=== PATIENT | male | born 1970 | race Caucasian/White ===

== ENCOUNTER 2018-12-10 06:59 | Day surgery (SDC) | payer BC, SELFPAY ==
[2018-12-07 13:24] VITALS: BMI 25.0
[2018-12-10] VITALS (7 sets, daily range): BP systolic 102–129; BP diastolic 47–77; PULSE 65–95; RESP 18; TEMP 36.3–36.5; O2SAT 97–100
--- NOTE | 2018-12-10 07:51 | P.PN_ITS ---
[facility] Anesthesia Checklist - Patient Identification Patient Identification: Arm Band - Structural Data Admitted From: Home Planned Operative Procedure/s: colonoscopy Consent for Planned Operative Procedure(s) Verified: Yes Verified Documents: Surgical Consent, History and Physical - NPO Status Verified Time NPO: 00:00 - Additional verifications Anesthesia Reactions: No - Airway Assessment C-Spine Mobility Assessed: Yes (mp2) TMJ Mobility Assessed: Yes Dentition: Good Dentition - Neurological Assessment Level of Consciousness: Awake, Alert - Anesthesia Plan Anesthesia Risk discussed: Yes Anesthesia Plan: Verified ASA Class: II Anesthesia Type: MAC [facility] History I have reviewed the patient's past medical history: Yes Medical History: Reports:: Hypertension Denies:: Diabetes Mellitus Type 1, Diabetes Mellitus Type 2, Internal Pacemaker, Lung Disease, Seizures *Have you ever received a pneumonia vaccine?: No *Have you received a flu vaccine this season?: Yes Other Medical History: Reports: Other (crohns) Laterality Cases: Right: Arthroscopy Knee Other Surgeries: Yes: Other (right femur orif). No: Pacemaker - *Social History *Occupational Status:: other *Travel in the last 8 weeks: None Family Hx:: Unable to obtain
--- NOTE | 2018-12-10 08:30 | P.PCN_ITS ---
[facility] Procedure Note Procedure Note:: Colonoscopy Procedure Report: Colonoscopy with cold snare polypectomy Endoscopist: Lorenzo Thorpe II, MD Referring physician: Norman Cook MD Date of Procedure: December 10, 2018 Equipment: Olympus 180 variable stiffness pediatric colonoscope Sedation: MAC sedation Indication: Mr. Hobbs is a 48-year-old gentleman who is here for screening colonoscopy. He does have a long history of Crohn's colitis and positive anti- Cbir. He had been on Remicade and Imuran but now is on Imuran 150 mg p.o. daily. He has been on this for approximately 9 years. He had a colonoscopy in October 2015 showing complete colonoscopic remission. He does have some occasional constipation and occasional left upper abdominal pain/discomfort. He does take fiber plus. He occasionally sees some blood on the tissue but not in the bowl. He has no mucus. He reports no weight loss or family history of colon cancer. His colonoscopy in October 2015 revealed 2 colon polyps (small serrated adenomas) which were removed. Procedure: Prior to the procedure, a history and physical exam was performed, and patient's medications and allergies were reviewed. The risks, benefits and alternatives of the sedation and procedure were discussed with the patient. All questions were answered and informed consent was obtained. The patient was brought to the procedure room. Patient identification and proposed procedure were verified by the physician and the nurse. The patient was placed in a left lateral decubitus position and the scope was passed under direct vision. Throughout the procedure, the patient's blood pressure, pulse, and oxygen saturations were monitored continuously. The colonoscopy was accomplished without difficulty. The patient tolerated the procedure well. Findings: On digital rectal examination there was normal rectal tone. There were no external hemorrhoids. The colonoscope was introduced through the anal canal to the rectum and advanced to the cecum. The ileocecal valve and appendiceal orifice were identified. The scope was advanced a short distance into the ileum which appeared grossly normal. The scope was then withdrawn into the colon. The cecum, ascending, transverse and descending colon were grossly normal. There were 2 polyps that were 5 mm in the sigmoid colon both removed via cold snare polypectomy. There were no mucosal abnormalities identified. There was some colonic mucosal fibrosis in the left colon from healed colitis but there was complete remission of the colitis. Upon retroflexion within the rectum there were grade 1 internal hemorrhoids.The preparation was excellent throughout with [place] Preparation Score of 9. The cecal time was 13 minutes. Impression: 1. Diminutive colonic polyps x2?rule out hyperplastic versus inflammatory polyps 2. Complete colonoscopic remission of Crohn's colitis 3. Grade 1 internal hemorrhoids Plan: I will follow-up the polyp histology and if these are non-adenomatous, I would recommend repeat screening/surveillance colonoscopy again in 5 years. I would continue maintenance of remission therapy (Imuran)
== END 2018-12-10 09:25 | disposition home or self-care (01) ==
LOC: OUTP 07:06
PROVIDERS: PCP Family Medicine; Visit Provider Internal Medicine Gastroenterology
PROC: 0DJD8ZZ Inspection of Lower Intestinal Tract, Via Natural or Artificial Opening Endoscopic (ICD-10-PCS; CPT 45378; principal; 2018-12-10 08:00)
DX: Z12.11 Encounter for screening for malignant neoplasm of colon (principal); Z79.899 Other long term (current) drug therapy; K63.5 Polyp of colon; K64.0 First degree hemorrhoids
CPT/HCPCS: 45385

== ENCOUNTER → 2024-05-09 12:47 | Day surgery (SDC) | payer BC, SELFPAY ==
[2024-05-06 14:57] VITALS: BMI 24.4
--- NOTE | 2024-05-09 13:18 | P.PNANES_ITS ---
[facility] Disclaimer: The information contained in this section may have been updated after the patient was seen, as this information can be updated by other users. Medical History Crohn's disease Hypertension Family History Other Family history of myocardial infarction Family history of stroke Social History Smoking Status: Never smoker alcohol intake: current substance use type: denies use current occupational status: other Travel in the last 8 weeks: None caffeine: Yes [facility] Anesthesia Checklist Patient Identification Patient Identification: Arm Band and Verbal (Name & ) Structural Data Admitted From: Home Planned Operative Procedure/s: Colonoscopy Consent for Planned Operative Procedure(s) Verified: Yes Verified Documents: Surgical Consent and History and Physical NPO Status Verified Time NPO: 00:00 Additional verifications Anesthesia Reactions: No Airway Assessment Mallampati Score:: Class I C-Spine Mobility Assessed: Yes TMJ Mobility Assessed: Yes Dentition: Good Dentition Neurological Assessment Level of Consciousness: Awake Hx Seizures: No Numbness or tingling in extremities: No Anesthesia Plan Anesthesia Risk discussed: Yes Anesthesia Plan: Verified ASA Class: II Anesthesia Type: MAC
[2024-05-09 13:24] VITALS: BP 135/93; PULSE 64; RESP 18; TEMP 36.2; O2SAT 99; BMI 24.4
[2024-05-09] MEDS: LACTATED RINGERS 1000ML 1,000 ML 25 ML IV (13:32)
[2024-05-09 14:05] VITALS: O2SAT 100
--- NOTE | 2024-05-09 14:11 | EXP.HP ---
History of Present Illness *Admission Date: 05/09/24 *Reason for visit:: Personal history of adenomatous colon polyps and personal history of Crohn' *History of present illness: Mr. Hobbs is a 54-year-old gentleman who is here for surveillance colonoscopy. He did have a colonoscopy in October 2015 and had 2 polyps (small serrated adenomas) removed. His Crohn's disease was in complete remission.His last colonoscopy in November 2018 revealed 2 polyps (hyperplastic polyps x 2) which were removed.. The examination is deemed medically necessary for colonoscopy. The patient has been seen, interviewed and examined prior to the procedure by both myself and the anesthesia provider. [facility] Disclaimer: The information contained in this section may have been updated after the patient was seen, as this information can be updated by other users. Medical History Crohn's disease Hypertension Family History Other Family history of myocardial infarction Family history of stroke Social History (Updated 05/09/24 @ 13:23 by Christel Garcia CRNA) Smoking Status: Never smoker alcohol intake: current substance use type: denies use current occupational status: other Travel in the last 8 weeks: None caffeine: Yes Other Medical History Have you received the Flu Vaccine for this season: Yes Have you received the Pneumonia Vaccine: No Review of Systems Review of Systems Review of systems (narrative): Negative *Cardiovascular Comments: Negative *Gastrointestinal Comments: Negative *Genitourinary Comments: Negative *Musculoskeletal Comments: Negative *Neurologic Comments: Negative Meds Home Medications and Allergies Home Medications ?Medication ?Instructions ?Recorded ?Confirmed ?Type cetirizine 10 mg tablet (Zyrtec) 10 mg PO DAILY Allergy symptoms 12/07/18 05/06/24 History cyclobenzaprine 10 mg tablet 10 mg PO HS PRN Muscle Pain 05/06/24 05/06/24 History losartan 25 mg tablet 25 mg PO DAILY 05/06/24 05/06/24 History omeprazole 20 mg capsule,delayed 20 mg PO DAILY 05/06/24 05/06/24 History release turmeric 400 mg capsule 400 mg PO DAILY 05/06/24 05/06/24 History New Prescriptions to Start Prescriptions: Allergies Allergy/AdvReac Type Severity Reaction Status Date / Time No Known Allergies Allergy Verified 05/09/24 13:22 Exam Data for Last 24 hours Vital signs and Labs for Last 24 Hours: Temp Pulse Resp BP Pulse Ox O2 Del Method 97.1 F L 64 18 135/93 H 99 Room Air 05/09/24 13:24 05/09/24 13:24 05/09/24 13:24 05/09/24 13:24 05/09/24 13:24 05/09/24 13:24 I & O for Last 24 hours: Intake & Output 05/06/24 05/07/24 05/08/24 05/09/24 23:59 23:59 23:59 23:59 Weight 185 lb 185 lb *Routine HEENT Exam Head: Present normocephalic Eye: Present EOMI and PERRL ENT: Present mucous membranes moist *Routine Neck Exam Neck: Present supple *Routine Respiratory Exam Respiratory: Present CTA bilaterally *Routine Cardiovascular Exam Cardiovascular: Present RRR *Routine Abdominal Exam Abdominal: Present soft and normoactive bowel sounds; Absent tenderness *Routine Rectal Exam Rectal:: deferred *Routine Genitalia Exam Genitalia:: deferred *Routine Extremities Exam Extremities: Absent cyanosis, clubbing or edema *Routine Skin Exam Skin: Present warm; Absent rash *Routine Neurological Exam Neurological: Present alert and oriented X3 Assessment and Plan *Assessment and plan (1) Personal history of adenomatous and serrated colon polyps: Status: Acute Category: Medical Code(s): Z86.0101 - Personal history of adenomatous and serrated colon polyps (2) Crohn's disease of colon without complication: Status: Acute Category: Medical Code(s): K50.10 - Crohn's disease of large intestine without complications Plan A/P: 1. Personal history of adenomatous colon polyps and history of Crohn's colitis in remission is the preprocedural diagnosis. The patient will be anesthetized/sedated using MAC sedation. The patient has been seen and examined. Cardiac and lung assessment prior to the examination is stable. Proceed with planned colonoscopy
--- NOTE | 2024-05-09 14:14 | HMH.PROCNOTE ---
[facility] Procedure Note Date: 05/09/24 Time: 14:29 Procedure Note:: Colonoscopy Procedure Report: Colonoscopy Endoscopist: Lorenzo Thorpe II, MD Referring physician: Ever Caruso MD Date of Procedure: May 09, 2024 Equipment: Olympus 190 variable stiffness pediatric colonoscope Sedation: MAC sedation Indication: Mr. Hobbs is a 54-year-old gentleman who is here for follow-up surveillance colonoscopy secondary to a personal history of adenomatous colon polyps and history of Crohn's colitis (Crohn's disease of the colon without complication) which has been in remission. The patient did have a colonoscopy in October 2015 and had 2 small polyps (small serrated adenomas x 2) removed. His last colonoscopy in November 2018 revealed 2 polyps (hyperplastic polyps x 2) which were removed. The patient is now off of any maintenance of remission therapy and off of Imuran and Remicade. He reports no abdominal pain, weight loss, change in his bowel habits or rectal bleeding. He reports no family history of IBD or colon cancer. Procedure: Prior to the procedure, a history and physical exam was performed, and patient's medications and allergies were reviewed. The risks, benefits and alternatives of the sedation and procedure were discussed with the patient. All questions were answered and informed consent was obtained. The patient was brought to the procedure room. Patient identification and proposed procedure were verified by the physician and the nurse. The patient was placed in a left lateral decubitus position and the scope was passed under direct vision. Throughout the procedure, the patient's blood pressure, pulse, and oxygen saturations were monitored continuously. The colonoscopy was accomplished without difficulty. The patient tolerated the procedure well. Findings: On digital rectal examination there was normal rectal tone. There were no external hemorrhoids. The colonoscope was introduced through the anal canal to the rectum and advanced to the cecum. The ileocecal valve and appendiceal orifice were identified. The scope was advanced a short distance into the ileum which appeared grossly normal. The scope was then withdrawn into the colon. The cecum, ascending, transverse, descending, sigmoid and rectum were grossly normal. There were no mucosal abnormalities identified. Upon retroflexion within the rectum there were grade 1 internal hemorrhoids.The preparation was excellent throughout with [place] Preparation Score of 9. The cecal time was 11 minutes. Impression: 1. Normal colonoscopy with intubation of the terminal ileum?complete colonoscopic remission of Crohn's 2. Grade 1 internal hemorrhoids Plan: Based upon the patient's personal history of adenomatous polyps and personal history of Crohn's, I would recommend continued surveillance interval of 5 years.
[2024-05-09 14:31] VITALS: BP 108/73; PULSE 84; RESP 14; TEMP 36.2; O2SAT 100
[2024-05-09 14:41] VITALS: BP 105/67; PULSE 87; RESP 16; O2SAT 97
== END | disposition home or self-care (01) ==
PROVIDERS: PCP Family Medicine; Visit Provider Internal Medicine Gastroenterology
PROC: (CPT 45378; principal; 2024-05-09 14:30)
DX: K50.10 Crohn's disease of large intestine without complications (principal); Z86.0101 Personal history of adenomatous and serrated colon polyps; K64.0 First degree hemorrhoids
CPT/HCPCS: 45378; J7120